=== PATIENT | male | born 1970 | race Two or more races ===

== ENCOUNTER → 2020-05-11 | Outpatient (CLI) | payer MEDICARE ==
[2020-05-11 13:55] LABS: BASOPHILS % (AUTO) 1 % (0-1); EOSINOPHILS % (AUTO) 3 % (1-7); LYMPHOCYTES % (AUTO) 24 % (22-44); MEAN CORPUSCULAR HEMOGLOBIN 29.1 pg (27.5-34.5); MEAN CORPUSCULAR HGB CONC 32.8 g/dL (33.2-36.2); MEAN PLATELET VOLUME 7.7 fL (7.4-10.4); MONOCYTES % (AUTO) 6 % (2-9); NEUTROPHILS % (AUTO) 66 % (42-75); PLATELET COUNT 267 x10^3/uL (130-400); RED BLOOD COUNT 3.72 x10^6/uL (4.38-5.82); RED CELL DISTRIBUTION WIDTH 14.6 % (9.4-14.8)
[2020-05-11 14:01] LABS: MD NO
[2020-05-11 14:06] LABS: ALANINE AMINOTRANSFERASE 56 U/L (12-78); ALBUMIN 3.1 g/dL (3.4-5.0); ANION GAP 9 mmol/L (5-15); CALCIUM 8.9 mg/dL (8.5-10.1); CHLORIDE 97 mmol/L (98-107); CREATININE 2.59 mg/dL (0.7-1.3)
[2020-05-11 14:08] LABS: ALKALINE PHOSPHATASE 238 U/L (45-117); BILIRUBIN,TOTAL 0.4 mg/dL (0.2-1.0); TOTAL PROTEIN 7.7 g/dL (6.4-8.2)
== END | disposition home or self-care (01) ==
LOC: STAR 13:06
PROVIDERS: ATTEND Surgery
DX: Z01.812 Encounter for preprocedural laboratory examination (principal); Z20.828 Contact with and (suspected) exposure to other viral communicable diseases; N18.6 End stage renal disease
CPT/HCPCS: 80053; 85025; 87635; 93005

== ENCOUNTER 2020-05-17 12:48 | Day surgery (SDC) | payer MEDICARE, MEDICAID ==
[~2020-05-17] VITALS: Ht 185.4 cm; Wt 103.3 kg
[~2020-05-17 12:48] MED LIST: ALBU18HF INH; ALLO300T PO; AMLO-211 PO; ATOR-2 PO; CHLO25TA PO; CHOL10003 PO; DOXA4TAB3 PO; EZET10TA70 PO; FERR324T18 PO; FLUT1AER INH; FLUT50BL INH; FURO20TA3 PO; HYDR100T25 PO; INSU100C SQ-INSULIN; INSU100I13 SQ; LORA10TA75 PO; MONT10TA96 PO; PANT40TA6 PO; VITA1CAP PO
[2020-05-17] MEDS ORDERED: CHLORHEXIDINE 15 ML UDC MM ONE (13:30)
[2020-05-17 13:33] VITALS: BP 192/70
[2020-05-17] MEDS ORDERED: SODIUM CHLORIDE 0.9% 1,000 ML IV SCH (14:00)
[2020-05-17] MEDS ORDERED: INSULIN SINGLE DOSE, ER ONE ×2 (14:30→15:09)
[2020-05-17] MEDS ORDERED: INSULIN REGULAR 100 UNITS/ML, 3ML VIAL IVPush ONE ×3 (14:30→16:00)
[2020-05-17] MEDS ORDERED: FENTANYL PF 250 MCG/5ML ONE (15:13)
[2020-05-17] MEDS ORDERED: MIDAZOLAM 1 MG/ML, 2ML ONE (15:13)
[2020-05-17] MEDS ORDERED: THROMBIN 5,000 UNIT VIAL TP ONE (15:18)
[2020-05-17] MEDS ORDERED: HEPARIN 1,000 UNITS/ML, 10ML ONE (15:18)
[2020-05-17] MEDS ORDERED: BUPIVACAINE/PF-EPI 0.5% 1:200K ONE (15:18)
[2020-05-17] MEDS ORDERED: PROTAMINE SULFATE 10 MG/ML, 5ML ONE (15:18)
[2020-05-17] MEDS ORDERED: PAPAVERINE 30 MG/ML, 2ML ONE (15:18)
[2020-05-17] MEDS ORDERED: BUPIVACAINE/PF 0.25% ONE (15:37)
[2020-05-17] MEDS ORDERED: HEPARIN 1,000 UNITS/ML, 1ML IV ONE (19:02)
[2020-05-17] MEDS ORDERED: BUPIVACAINE/PF 0.25% IM ONE (19:02)
[2020-05-17] MEDS ORDERED: OXYcodone 5 MG/5 ML ORAL.SOL UDC PO PRN (19:30)
[2020-05-17] MEDS ORDERED: PROMETHAZINE 25 MG/ML, 1ML IVPush PRN (19:30)
[2020-05-17] MEDS ORDERED: HYDROmorphone 1 MG/ML, 1ML INJ IVPush PRN (19:30)
[2020-05-17] MEDS ORDERED: ACETAMINOPHEN 325 MG TABLET PO PRN (19:30)
[2020-05-17] MEDS ORDERED: ALBUTEROL SULFATE 2.5 MG/3 ML NPPB PRN (19:30)
[2020-05-17] MEDS ORDERED: FENTANYL PF 100 MCG/2ML IV PRN (19:30)
[2020-05-17] MEDS ORDERED: MIDAZOLAM 1 MG/ML, 2ML IV PRN (19:30)
[2020-05-17] MEDS ORDERED: LABETALOL 5MG/ML, 20ML IV PRN (19:30)
[2020-05-17] MEDS ORDERED: CEFAZOLIN 1,000 MG ONE (19:38)
[2020-05-17] MEDS ORDERED: PROPOFOL 10 MG/ML, 20ML ONE (19:38)
[2020-05-17] MEDS ORDERED: ONDANSETRON 2MG/ML, 2ML ONE (19:38)
[2020-05-17] MEDS ORDERED: LIDOCAINE-MPF 2% ,5ML ONE (19:38)
== END 2020-05-17 21:14 | disposition home or self-care (01) ==
LOC: OUT 12:48
PROVIDERS: ATTEND Surgery
DX: Z45.2 Encounter for adjustment and management of vascular access device (principal); I12.0 Hypertensive chronic kidney disease with stage 5 chronic kidney disease or end stage renal disease; E10.22 Type 1 diabetes mellitus with diabetic chronic kidney disease; N18.6 End stage renal disease; E10.40 Type 1 diabetes mellitus with diabetic neuropathy, unspecified; E10.319 Type 1 diabetes mellitus with unspecified diabetic retinopathy without macular edema; E78.5 Hyperlipidemia, unspecified; M10.9 Gout, unspecified; K21.9 Gastro-esophageal reflux disease without esophagitis; E66.9 Obesity, unspecified; G47.33 Obstructive sleep apnea (adult) (pediatric); J45.909 Unspecified asthma, uncomplicated; Z88.1 Allergy status to other antibiotic agents; Z88.3 Allergy status to other anti-infective agents; Z88.8 Allergy status to other drugs, medicaments and biological substances; Z91.048 Other nonmedicinal substance allergy status; Z79.4 Long term (current) use of insulin; Z79.899 Other long term (current) drug therapy; Z79.82 Long term (current) use of aspirin; Z87.891 Personal history of nicotine dependence; Z98.890 Other specified postprocedural states; Z68.30 Body mass index [BMI] 30.0-30.9, adult
CPT/HCPCS: 36832; 82962; J0690; J1644; J1815; J2250; J2405; J2704; J3010; J7030; J2720; J2440